=== PATIENT | male | born 1950 | race Two or more races ===

== ENCOUNTER 2024-09-16 07:09 | Day surgery (SDC) | payer MEDICARE, OTHER, SELFPAY ==
[2024-08-25 10:48] LABS: Hematocrit 41.8 % (39.0-52.0); Hemoglobin 14.2 g/dL (13.0-18.0); Mean Corpuscular Hgb 31.1 pg (27.0-31.0); Mean Corpuscular Volume 91.5 fL (80.0-94.0); Mean Platelet Volume 9.8 fL (7.4-10.4); Platelet Count 242 10^3/uL (130-400); Red Blood Cell Count 4.57 10^6/uL (4.70-6.10); Red Cell Dist. Width 13.2 % (11.5-14.5); White Blood Cell Count 7.7 10^3/uL (4.8-10.8)
[2024-08-25 11:15] LABS: Glycohemoglobin (HgbA1c) 6.5 % (4.0-5.6)
[2024-08-25 11:57] LABS: ALT (SGPT) 29 U/L (0-50); AST (SGOT) 26 U/L (17-59); Albumin 4.8 g/dl (3.5-5.0); Alkaline Phosphatase 98 U/L (38-126); Blood Urea Nitrogen 21 mg/dl (9-20); Calcium 9.4 mg/dl (8.4-10.2); Carbon Dioxide 24 mmol/L (22-30); Chloride 103 mmol/L (98-107); Glucose 116 mg/dl (70-99); Potassium 4.8 mmol/L (3.5-5.1); Sodium 138 mmol/L (135-145); Total Bilirubin 0.6 mg/dl (0.2-1.3); Total Protein 7.7 g/dl (6.3-8.2); eGFR > 60.00
[2024-08-25 13:33] VITALS: BMI 33.2
[2024-09-09 11:07] VITALS: BMI 33.2
[2024-09-16] VITALS (33 sets, daily range): BP systolic 71–148; BP diastolic 47–91; PULSE 72; O2SAT 96
--- NOTE | 2024-09-16 07:21 | W.DS.TRANS ---
DC Summary - Accounts Payable Coordinator
-
Discharge Instructions:
Sleep Apnea Risk Intermediate
Discharge Diagnosis/Procedures R TKA
Diet Diabetic, Carb Controlled
Activity With Walker
Driving Restrictions No driving
Bathing Restrictions OK to Shower
Other Services PT
Instructions:
Stand-Alone Forms: Total Hip/Knee Replacement D/C
Changes to Home Medications: Yes
Discharge Medications:
DC Medications w/original date entered in [facility]
escitalopram oxalate 5 mg tablet (Lexapro) 5 mg PO DAILY 09/09/24
lisinopril 20 mg tablet 20 mg PO HS 09/09/24
multivitamin 1 tab PO HS 09/09/24
mupirocin 2 % topical ointment 1 applic topical BID 09/09/24
omega 0-muo-cnv-fish oil 1,000 mg (120 mg-180 mg) capsule (Fish Oil) 1 cap PO HS 09/09/24
acetaminophen 325 mg tablet (Tylenol) 650 mg (2 x 325 mg) PO QID #1 tab 09/16/24
aspirin 325 mg tablet 325 mg PO DAILY blood clot prevention #1 tab 09/16/24
celecoxib 100 mg capsule 100 mg PO BID Anti-inflammatory #14 caps 09/16/24
dexamethasone 4 mg tablet 4 mg PO BID inflammation #6 tabs 09/16/24
docusate sodium 100 mg capsule (Colace) 100 mg PO BID stool softner #1 cap 09/16/24
magnesium hydroxide 400 mg/5 mL oral suspension (Milk of Magnesia) 30 ml PO HS PRN Constipation #1 mL 09/16/24
ondansetron 4 mg disintegrating tablet 4 mg PO Q6H PRN n/v #20 tabs 09/16/24
oxycodone 5 mg tablet 5 mg PO Q6H PRN 1 tab moderate pain, 2 tabs severe pain #30 tabs 09/16/24
sennosides 8.6 mg tablet (Senokot) 17.2 mg (2 x 8.6 mg) PO BID laxative #2 tabs 09/16/24
Home Medication Changes
mupirocin 2 % topical ointment 1 applic topical BID 09/09/24
omega 7-yzz-yqy-fish oil 1,000 mg (120 mg-180 mg) capsule (Fish Oil) 1 cap PO HS 09/09/24
acetaminophen 325 mg tablet (Tylenol) 650 mg (2 x 325 mg) PO QID #1 tab 09/16/24
aspirin 325 mg tablet 325 mg PO DAILY blood clot prevention #1 tab 09/16/24
celecoxib 100 mg capsule 100 mg PO BID Anti-inflammatory #14 caps 09/16/24
dexamethasone 4 mg tablet 4 mg PO BID inflammation #6 tabs 09/16/24
docusate sodium 100 mg capsule (Colace) 100 mg PO BID stool softner #1 cap 09/16/24
magnesium hydroxide 400 mg/5 mL oral suspension (Milk of Magnesia) 30 ml PO HS PRN Constipation #1 mL 09/16/24
ondansetron 4 mg disintegrating tablet 4 mg PO Q6H PRN n/v #20 tabs 09/16/24
oxycodone 5 mg tablet 5 mg PO Q6H PRN 1 tab moderate pain, 2 tabs severe pain #30 tabs 09/16/24
sennosides 8.6 mg tablet (Senokot) 17.2 mg (2 x 8.6 mg) PO BID laxative #2 tabs 09/16/24
Pending Results: No
[2024-09-16] MEDS: TYLENOL 650 MG PO ×4 (07:41→20:03)
[2024-09-16] MEDS: BACTROBAN NASAL 1 GRAM NASAL (07:42)
[2024-09-16] MEDS: CELEBREX 200 MG PO (07:42)
[2024-09-16] MEDS: NORMOSOL-R/PLASMALYTE-A 1000 IV ×2 (07:45→11:42)
[2024-09-16] MEDS: ROXICODONE 5 MG PO ×2 (11:51→15:35)
--- NOTE | 2024-09-16 13:13 | PTCARENOTE ---
Pt arrived to 2S in bed. Full assessment completed. R knee primaseal C/D/I. IVF infusing per order. Pt denies pain at this time. Pt with decreased movement to RLE, neurovascular assessment otherwise WDL. Bed locked and in the lowest position, safety
maintained. Oriented to room and call lee, verbalized understanding to ring for assistance getting OOB.
[2024-09-16] MEDS: LEXAPRO 5 MG PO (13:51)
[2024-09-16] MEDS: ULTRAM 50 MG PO ×2 (13:51→20:03)
--- NOTE | 2024-09-16 16:06 | W.PN.UPDATE ---
Update Note
Progress Note Update
Patient seen and examined. Has been OOB walking in the hallway. VSS. Pulm: nonlabored. CV: regular. Abd: benign. Ext: Able to fully extend and flex to 80 degrees. Calf soft. Dressing CDI. Postop xray as expected. ASA for DVT
prophylaxis. Plan for discharge home tomorrow with outpatient PT on Thursday.
[2024-09-16] MEDS: ASPIRIN 325 MG PO (17:07)
[2024-09-16] MEDS: BACTROBAN 2% OINTMENT 1 APPLIC NASAL (20:02)
[2024-09-16] MEDS: COLACE 100 MG PO (20:02)
[2024-09-16] MEDS: DECADRON 4 MG IV (20:02)
[2024-09-16] MEDS: SENOKOT 17.2 MG PO (20:03)
[2024-09-16] MEDS: TORADOL 15 MG IV (20:03)
[2024-09-16] MEDS: ANCEF 5 IV (21:14)
[2024-09-16] MEDS: NEURONTIN 300 MG PO (21:19)
[2024-09-17] MEDS: TYLENOL PO (00:38)
[2024-09-17 03:15] VITALS: BP 123/67
[2024-09-17] MEDS: ANCEF 5 IV (05:25)
[2024-09-17] MEDS: TYLENOL 650 MG PO ×2 (05:27→08:25)
[2024-09-17 07:20] VITALS: BP 120/71
[2024-09-17] MEDS: TORADOL 15 MG IV (08:21)
[2024-09-17] MEDS: DECADRON 4 MG IV (08:23)
--- NOTE | 2024-09-17 08:25 | W.PN.ORTHO ---
Today's Communication / Plan
-
POD#1 right TKA under the direction of Dr. Benitez
--Weight bearing as tolerated. Ambulate with walker
--PT/OT. He does have outpatient appointment scheduled to begin on Thursday
--Aspirin 325mg daily for DVT prophylaxis for 4 weeks postop
--Aquacel dressing may be removed 7-10 days postop and left open to air
--Post op pain medications were already provided to patient
--He will require new walker prior to discharge as the one he brought with him is too short
--Follow up outpatient in 2 weeks
--Stable for discharge to home today
Assessment
.
Distal Motor Intact: Yes
Dressing:
Clean, dry and intact.
Plan
.
Surgery / Date: Right TKA 09/16/23 ([facility])
DVT Prophylaxis: Aspirin
Activity:
Out of bed.
PT/OT
Discharge Plan: Home
Subjective
.
.:
Patient resting comfortably, sitting up in bed this morning. He reports that his pain is well controlled. He has been out of bed with PT and reports that PT will be coming by this morning again
Vital Signs and Labs
.
Vital Signs and Labs:
Lab Results
08/25/24 10:25
08/25/24 10:25
Temp Pulse Resp BP Pulse Ox
97.8 F 76 16 120/71 97
09/17/24 07:20 09/17/24 07:20 09/17/24 07:20 09/17/24 07:20 09/17/24 07:20
Non-invasive Hgb result: 12.7
Physical Exam
-
Directed exam of right knee reveals Aquacel in place with mild strikethrough to the center of the bandage. Mild expected edema. Calf soft and nontender. NVI distally
[2024-09-17] MEDS: COLACE 100 MG PO (08:26)
[2024-09-17] MEDS: ASPIRIN 325 MG PO (08:26)
[2024-09-17] MEDS: SENOKOT 17.2 MG PO (08:26)
[2024-09-17] MEDS: LEXAPRO 5 MG PO (08:27)
[2024-09-17] MEDS: BACTROBAN 2% OINTMENT 1 APPLIC NASAL (08:28)
[2024-09-17] MEDS: ULTRAM 50 MG PO (08:29)
--- NOTE | 2024-09-17 08:39 | W.DS.TRANS ---
DC Summary - Regional Trainer
-
Discharge Instructions:
Sleep Apnea Risk Intermediate
Discharge Diagnosis/Procedures Right total knee arthroplasty
Diet Diabetic, Carb Controlled
Activity With Walker
Driving Restrictions No driving
Bathing Restrictions OK to Shower
Other Services PT
Instructions:
Stand-Alone Forms: Total Hip/Knee Replacement D/C
Changes to Home Medications: No
Discharge Medications:
DC Medications w/original date entered in [employer]
escitalopram oxalate 5 mg tablet (Lexapro) 5 mg PO DAILY 09/09/24
lisinopril 20 mg tablet 20 mg PO HS 09/09/24
multivitamin 1 tab PO HS 09/09/24
mupirocin 2 % topical ointment 1 applic topical BID 09/09/24
omega 5-hfr-cln-fish oil 1,000 mg (120 mg-180 mg) capsule (Fish Oil) 1 cap PO HS 09/09/24
acetaminophen 325 mg tablet (Tylenol) 650 mg (2 x 325 mg) PO QID #1 tab 09/16/24
aspirin 325 mg tablet 325 mg PO DAILY blood clot prevention #1 tab 09/16/24
celecoxib 100 mg capsule 100 mg PO BID Anti-inflammatory #14 caps 09/16/24
dexamethasone 4 mg tablet 4 mg PO BID inflammation #6 tabs 09/16/24
docusate sodium 100 mg capsule (Colace) 100 mg PO BID stool softner #1 cap 09/16/24
magnesium hydroxide 400 mg/5 mL oral suspension (Milk of Magnesia) 30 ml PO HS PRN Constipation #1 mL 09/16/24
ondansetron 4 mg disintegrating tablet 4 mg PO Q6H PRN n/v #20 tabs 09/16/24
oxycodone 5 mg tablet 5 mg PO Q6H PRN 1 tab moderate pain, 2 tabs severe pain #30 tabs 09/16/24
sennosides 8.6 mg tablet (Senokot) 17.2 mg (2 x 8.6 mg) PO BID laxative #2 tabs 09/16/24
Home Medication Changes
Pending Results: No
--- NOTE | 2024-09-17 08:40 | W.DCSUMMARY ---
Discharge Summary
Discharge Data
Date of Admission: 09/16/24
Date of Discharge: 09/17/24
-
Pending Results: No
Hospital Course
74 year old male admitted to the hospital after elective right total knee replacement on 09/16/[address] Benitez. His pain was controlled and he was able to work with physical therapy. He was deemed stable for discharge to home with outpatient
therapy. His medical status was monitored. He will be weight bearing as tolerated to the right leg. He was provided with pain medications to be taken as needed. He will take aspirin 325mg daily for 4 weeks postoperatively for prevention of blood
clots. He has an outpatient follow up appointment scheduled for two weeks postop. He is stable for discharge to home.
Discharge Plan
-
Patient Disposition: Home (Routine Discharge)
Discharge Diagnosis/Procedures: Right total knee arthroplasty
Condition: Good
Diet: Diabetic, Carb Controlled
Activity: With Walker
Driving Restrictions: No driving
Bathing Restrictions: OK to Shower
Other Services: PT
Stand Alone Forms: Total Hip/Knee Replacement D/C
Referrals:
Darin Benitez MD [Active] -
Gomez Haynes DO [Family Provider] -
Prescriptions:
New
sennosides [Senokot] 8.6 mg tablet
17.2 mg PO BID Qty: 2 0RF
acetaminophen [Tylenol] 325 mg tablet
650 mg PO QID Qty: 1 0RF
Rx Instructions:
SCHEDULED DOSING
aspirin 325 mg tablet
325 mg PO DAILY Qty: 1 0RF
Rx Instructions:
Take with food
magnesium hydroxide [Milk of Magnesia] 400 mg/5 mL suspension
30 ml PO HS PRN (Reason: Constipation) Qty: 1 0RF
dexamethasone 4 mg tablet
4 mg PO BID Qty: 6 0RF
Rx Instructions:
take with food
post-op use only
docusate sodium [Colace] 100 mg capsule
100 mg PO BID Qty: 1 0RF
celecoxib 100 mg capsule
100 mg PO BID Qty: 14 0RF
Rx Instructions:
take with food
ondansetron [ondansetron] 4 mg tablet,disintegrating
4 mg PO Q6H PRN (Reason: n/v) Qty: 20 0RF
Rx Instructions:
take 1/2h b/f pain med if recurrent nausea
allow to dissolve in mouth w/o water
oxycodone 5 mg tablet
5 mg PO Q6H PRN (Reason: 1 tab moderate pain, 2 tabs severe pain) Qty: 30 0RF
Rx Instructions:
Ongoing therapy
Continued
multivitamin Tablet
1 tab PO HS
lisinopril 20 mg Tablet
20 mg PO HS
escitalopram oxalate [Lexapro] 5 mg Tablet
5 mg PO DAILY
mupirocin 2 % Ointment
1 applic TOPICAL BID
Held
omega 9-ehy-eqi-fish oil [Fish Oil] 1,000 (120-180) mg Capsule
1 cap PO HS
Hold Instructions: Resume on 09/24/24.
Discharge Orders:
Discharge Patient (As Directed); Ordered 09/17/24
Ordered By: Cecily Ga
Discharge Date and Time
Print Language: MALTESE
[2024-09-17 09:12] VITALS: BP 118/68; PULSE 74; O2SAT 95
--- NOTE | 2024-09-17 10:53 | CM ---
Met with pt at bedside
Pt reports he lives with his in an apartment; no steps to enter, FF set-up
Independent at baseline, retired, drives
DME - rolling walker, single point cane, raised toilet seat, toilet rails
SNF/HH - no past hx
Has ride at d/c
PCP - Gomez Haynes
Pharm - [facility]
For outpatient PT at [facility] - has appt scheduled on 09/20. Has transport for PT. Has RX
Plan - home with outpatient PT
[2024-09-17 10:54] VITALS: BP 107/65
== END 2024-09-17 11:13 | disposition home or self-care (01) | DRG 470 ==
LOC: PACU 07:09
PROVIDERS: ATTENDING PHYSICIAN Orthopaedic Surgery; FAMILY PHYSICIAN Family Medicine
PROC: 0SRC0J9 Replacement of Right Knee Joint with Synthetic Substitute, Cemented, Open Approach (ICD-10-PCS; 2024-09-16)
DX: M17.31 Unilateral post-traumatic osteoarthritis, right knee (principal)
CPT/HCPCS: 27447; C1776; 36415; 73560; 80053; 83036; 85027; 87070; 93005; 97116; 97162; 97166; 97530

== ENCOUNTER → 2025-05-29 13:27 | Outpatient (REF) | payer MEDICARE, OTHER, SELFPAY | LOC: MRI 3T 13:27 | PROVIDERS: ATTENDING PHYSICIAN Orthopaedic Surgery; FAMILY PHYSICIAN Family Medicine | DX: M54.31 Sciatica, right side (principal) | CPT/HCPCS: 72148 ==

== ENCOUNTER 2025-06-08 07:58 | Inpatient (IN) | payer MEDICARE, OTHER, SELFPAY ==
--- NOTE | 2025-05-16 09:16 | CM ---
Demographics:confirmed
Living situation: lives independently with
Support Person Post Operatively:
History of
VN: No
SNF: No
Outpatient: [facility], encouraged patient to make appointment
Has patient purchased required equipment: yes, encouraged patient to review BCOS list
PCP: [facility]
Pharmacy: [facility]
Post Operative Discharge Plan: Home with family, outpatient PT.
[2025-05-22 11:31] LABS: Hematocrit 40.5 % (39.0-52.0); Hemoglobin 13.2 g/dL (13.0-18.0); Mean Corp Hgb Conc. 32.6 g/dL (33.0-37.0); Mean Corpuscular Volume 90.0 fL (80.0-94.0); Platelet Count 255 10^3/uL (130-400); Red Cell Dist. Width 13.6 % (11.5-14.5)
[2025-05-22 12:05] LABS: ALT (SGPT) 26 U/L (0-50); AST (SGOT) 23 U/L (17-59); Albumin 4.5 g/dl (3.5-5.0); Alkaline Phosphatase 115 U/L (38-126); Blood Urea Nitrogen 21 mg/dl (9-20); Calcium 9.8 mg/dl (8.4-10.2); Carbon Dioxide 25 mmol/L (22-30); Chloride 103 mmol/L (98-107); Glucose 93 mg/dl (70-99); Potassium 4.5 mmol/L (3.5-5.1); Sodium 137 mmol/L (135-145); Total Protein 7.6 g/dl (6.3-8.2); eGFR > 60.00
[2025-05-22 12:17] LABS: Glycohemoglobin (HgbA1c) 6.4 % (4.0-5.6)
[2025-05-22 14:16] VITALS: BMI 32.2
[2025-05-24 08:05] VITALS: BMI 32.2
[2025-06-08] VITALS (14 sets, daily range): BP systolic 91–136; BP diastolic 51–94; PULSE 60; O2SAT 98
[2025-06-08] MEDS: CELEBREX 200 MG PO (08:26)
[2025-06-08] MEDS: TYLENOL 650 MG PO ×4 (08:27→23:54)
[2025-06-08] MEDS: BACTROBAN NASAL 1 GRAM NASAL (08:27)
[2025-06-08] MEDS: NORMOSOL-R/PLASMALYTE-A 1000 IV ×2 (08:29→14:02)
[2025-06-08] MEDS: SUBLIMAZE 50 MCG IV ×2 (12:19→12:59)
--- NOTE | 2025-06-08 12:25 | W.PN.UPDATE ---
Update Note
Progress Note Update
Patient seen in PACU. VSS. Pulm: nonlabored. CV: regular. LLE: Dressing CDI. NVI distally. Able to fully extend. Xray pending. ASA for DVT prophylaxis. Plan for PT today and tomorrow with discharge tomorrow and outpatient PT on Thursday.
--- NOTE | 2025-06-08 12:31 | W.PN.ORTHO ---
Today's Communication / Plan
-
d/c when stable
Plan
.
Surgery / Date: L TKA Dr Benitez
DVT Prophylaxis: Aspirin
Activity:
Out of bed.
PT/OT
Discharge Plan: Home w/ Outpatient PT
Vital Signs and Labs
.
Vital Signs and Labs:
Lab Results
05/22/25 10:54
05/22/25 10:54
Temp Pulse Resp BP Pulse Ox
98.2 F 63 13 103/64 98
06/08/25 11:53 06/08/25 12:15 06/08/25 12:15 06/08/25 12:15 06/08/25 12:15
--- NOTE | 2025-06-08 12:40 | W.DS.TRANS ---
DC Summary - Newspaper Manager
-
Discharge Instructions:
Sleep Apnea Risk Intermediate
Discharge Diagnosis/Procedures L TKA Dr Benitez 06/08/25
Diet Diabetic, Carb Controlled
Activity As tolerated,With Walker
Driving Restrictions No driving
Bathing Restrictions OK to Shower
Other Services PT
Instructions:
Stand-Alone Forms: Total Hip/Knee Replacement D/C
Changes to Home Medications: Yes
Discharge Medications:
DC Medications w/original date entered in [employer]
multivitamin 1 tab PO HS Supplement 09/09/24
Held on 06/08/25. Instructions: Resume on 06/16/25.
omega 6-zvi-jei-fish oil 1,000 mg (120 mg-180 mg) capsule (Fish Oil) 1 cap PO HS Supplement 09/09/24
Held on 06/08/25. Instructions: Resume on 06/16/25.
celecoxib 200 mg capsule 200 mg PO DAILY Anti-inflammatory #14 caps 05/22/25
dexamethasone 4 mg tablet 4 mg PO BID inflammation #6 tabs 05/22/25
famotidine 20 mg tablet 20 mg PO HS PRN GI prophylaxis #30 tabs 05/22/25
gabapentin 300 mg capsule 300 mg PO HS sleep/pain #10 caps 05/22/25
mupirocin 2 % topical ointment 1 applic topical BID infection prevention #1 tube 05/22/25
ondansetron 4 mg disintegrating tablet 4 mg PO Q6H PRN n/v #20 tabs 05/22/25
oxycodone 5 mg tablet 5 mg PO Q6H PRN 1 tab moderate pain, 2 tabs severe pain #30 tabs 05/22/25
Saccharomyces boulardii 250 mg capsule (Florastor) 250 mg PO BID #1 cap 06/08/25
acetaminophen 325 mg tablet (Tylenol) 650 mg (2 x 325 mg) PO QID #1 tab 06/08/25
aspirin 325 mg tablet 325 mg PO DAILY blood clot prevention #1 tab 06/08/25
cefadroxil 500 mg capsule 500 mg PO BID infection prevention #14 caps 06/08/25
docusate sodium 100 mg capsule (Colace) 100 mg PO BID stool softner #1 cap 06/08/25
lisinopril 20 mg tablet 20 mg PO HS Blood Pressure #0 tabs 06/08/25
magnesium hydroxide 400 mg/5 mL oral suspension (Milk of Magnesia) 30 ml PO HS PRN constipation #1 mL 06/08/25
sennosides 8.6 mg tablet (Senokot) 17.2 mg (2 x 8.6 mg) PO BID laxative #2 tabs 06/08/25
Home Medication Changes
celecoxib 200 mg capsule 200 mg PO DAILY Anti-inflammatory #14 caps 05/22/25
dexamethasone 4 mg tablet 4 mg PO BID inflammation #6 tabs 05/22/25
famotidine 20 mg tablet 20 mg PO HS PRN GI prophylaxis #30 tabs 05/22/25
gabapentin 300 mg capsule 300 mg PO HS sleep/pain #10 caps 05/22/25
mupirocin 2 % topical ointment 1 applic topical BID infection prevention #1 tube 05/22/25
ondansetron 4 mg disintegrating tablet 4 mg PO Q6H PRN n/v #20 tabs 05/22/25
oxycodone 5 mg tablet 5 mg PO Q6H PRN 1 tab moderate pain, 2 tabs severe pain #30 tabs 05/22/25
Saccharomyces boulardii 250 mg capsule (Florastor) 250 mg PO BID #1 cap 06/08/25
acetaminophen 325 mg tablet (Tylenol) 650 mg (2 x 325 mg) PO QID #1 tab 06/08/25
aspirin 325 mg tablet 325 mg PO DAILY blood clot prevention #1 tab 06/08/25
cefadroxil 500 mg capsule 500 mg PO BID infection prevention #14 caps 06/08/25
Pending Results: No
[2025-06-08] MEDS: ROXICODONE 5 MG PO (12:59)
[2025-06-08] MEDS: ANCEF 5 IV ×2 (17:26→23:53)
[2025-06-08] MEDS: ASPIRIN 325 MG PO (17:32)
[2025-06-08] MEDS: NOVOLOG FLEXPEN-MODERATE RESISTANCE SC (19:12)
[2025-06-08 21:22] LABS: Glucose - Point of Care 190 mg/dl (70-99)
[2025-06-08] MEDS: PEPCID 20 MG PO (22:08)
[2025-06-08] MEDS: TORADOL 15 MG IV ×2 (22:08→22:09)
[2025-06-08] MEDS: SENOKOT 17.2 MG PO (22:08)
[2025-06-08] MEDS: COLACE 100 MG PO (22:08)
[2025-06-08] MEDS: NEURONTIN 300 MG PO (22:09)
[2025-06-08] MEDS: DECADRON 4 MG IV (22:11)
[2025-06-08] MEDS: BACTROBAN 2% OINTMENT 1 APPLIC NASAL (22:12)
[2025-06-09 03:26] VITALS: BP 118/69
[2025-06-09] MEDS: TYLENOL PO (05:12)
[2025-06-09 07:35] VITALS: BP 119/60
[2025-06-09] MEDS: CELEBREX 200 MG PO (07:41)
[2025-06-09] MEDS: ASPIRIN 325 MG PO (07:42)
[2025-06-09] MEDS: COLACE 100 MG PO (07:42)
[2025-06-09] MEDS: TYLENOL 650 MG PO (07:42)
[2025-06-09] MEDS: SENOKOT 17.2 MG PO (07:42)
[2025-06-09 07:43] LABS: Glucose - Point of Care 159 mg/dl (70-99)
[2025-06-09] MEDS: NOVOLOG FLEXPEN-MODERATE RESISTANCE 1 UNITS SC (07:43)
[2025-06-09] MEDS: BACTROBAN 2% OINTMENT 1 APPLIC NASAL (07:43)
[2025-06-09] MEDS: DECADRON 4 MG IV (07:43)
--- NOTE | 2025-06-09 08:39 | CM ---
Cm met with patient in room. IMM given. Cm confirmed outpatient PT appointment.
PLAN: Home with family, outpatient PT at [facility].
[2025-06-09 08:57] VITALS: BP 108/73; PULSE 77
[2025-06-09 09:49] VITALS: BP 122/64; PULSE 80; O2SAT 97
[2025-06-09 11:20] VITALS: BP 119/95
--- NOTE | 2025-06-09 11:29 | W.PN.ORTHO ---
Today's Communication / Plan
-
d/c
Assessment
.
Distal Motor Intact: Yes
Dressing:
Clean, dry and intact.
Plan
.
Surgery / Date: Richard Benitez
DVT Prophylaxis: Aspirin
Activity:
Out of bed.
PT/OT
Discharge Plan: Home w/ Outpatient PT
Subjective
.
.:
Patient resting comfortably.
Vital Signs and Labs
.
Vital Signs and Labs:
Lab Results
05/22/25 10:54
05/22/25 10:54
Temp Pulse Resp BP Pulse Ox
97.9 F 72 18 119/60 96
06/09/25 07:35 06/09/25 07:35 06/09/25 07:35 06/09/25 07:35 06/09/25 07:35
Non-invasive Hgb result: 11.1
Physical Exam
-
HEENT: No pallor, cyanosis, or jaundice. Throat clear.
NECK: Supple. No JVD.
RESPIRATORY: Lungs clear to auscultation.
CVS: S1, S2 normal. RRR.� No murmur, rub or gallop.
ABDOMEN: Soft, non-tender. No distension. BS+/normal.
EXTREMITIES: strength equal, no calf pain with palpation
ROUTE DELIVERER: AOx3. No focal deficits. button and buckle maker grossly intact
== END 2025-06-09 11:49 | disposition home or self-care (01) | DRG 470 ==
LOC: 2 SOUTH 07:58
PROVIDERS: ADMITTING PHYSICIAN Orthopaedic Surgery; FAMILY PHYSICIAN Family Medicine
PROC: 0SRD0J9 Replacement of Left Knee Joint with Synthetic Substitute, Cemented, Open Approach (ICD-10-PCS; 2025-06-08)
DX: M17.12 Unilateral primary osteoarthritis, left knee (principal); I10 Essential (primary) hypertension; E66.9 Obesity, unspecified; R73.03 Prediabetes; M54.31 Sciatica, right side; F41.1 Generalized anxiety disorder; Z96.651 Presence of right artificial knee joint; Z68.33 Body mass index [BMI] 33.0-33.9, adult; Z85.46 Personal history of malignant neoplasm of prostate; Z92.3 Personal history of irradiation; Z87.891 Personal history of nicotine dependence; Z79.899 Other long term (current) drug therapy; Z79.82 Long term (current) use of aspirin
CPT/HCPCS: 36415; 73560; 80053; 82962; 83036; 85027; 87070; 93005; 97110; 97162; 97166; 97530; 97535; C1713; C1776